=== PATIENT | female | born 1990 | race African-American/Black ===

== ENCOUNTER 2019-03-31 08:00 | Outpatient (CLI) | payer OTHER ==
[2019-03-31 12:17] LABS: BASOPHILS % (AUTO) 0.6 %; EOSINOPHILS # (AUTO) 0.2 10^3/uL (0.0-0.7); EOSINOPHILS % (AUTO) 2.2 %; HGB - HEMOGLOBIN 13.6 g/dL (12.0-16.0); LYMPHOCYTES # (AUTO) 2.6 10^3/uL (1.5-3.5); LYMPHOCYTES % (AUTO) 38.3 %; MEAN CORPUSCULAR HEMOGLOBIN 27.2 pg (27.0-31.0); MEAN CORPUSCULAR HGB CONC 32.1 g/dL (32.0-36.0); MEAN CORPUSCULAR VOLUME 84.8 fL (81.0-99.0); MEAN PLATELET VOLUME 9.6 fL (7.9-10.8); MONOCYTES # (AUTO) 0.6 10^3/uL (0.0-1.0); MONOCYTES % (AUTO) 8.8 %; NEUTROPHILS # (AUTO) 3.4 10^3/uL (1.5-6.6); NEUTROPHILS % (AUTO) 49.8 %; PLT - PLATELET COUNT 331 10^3/uL (130-450); RED CELL DISTRIBUTION WIDTH 13.3 % (12.0-15.0); WHITE BLOOD COUNT 6.8 x10^3/uL (4.8-10.8)
[2019-03-31 12:39] LABS: ALBUMIN 3.9 g/dL (3.2-5.5); ALBUMIN/GLOBULIN RATIO 1.1 (1.0-2.2); ALKALINE PHOSPHATASE 65 IU/L (42-121); ALT ALANINE AMINOTRANSFERASE 32 IU/L (10-60); AST ASPARTATE AMINOTRANSFERASE 24 IU/L (10-42); BILIRUBIN,TOTAL 0.5 mg/dL (0.2-1.0); BUN - BLOOD UREA NITROGEN 10 mg/dL (6-20); CARBON DIOXIDE - CO2 26 mmol/L (21-32); CHLORIDE 101 mmol/L (101-111); CHOL/HDL RATIO 5.6 (<4.4); CHOLESTEROL 211 mg/dL; CREATININE 0.6 mg/dL (0.4-1.0); GFR - MDRD 145 (>89); GLUCOSE 208 mg/dL (70-100); HB2 TOTAL 14.6 g/dL; HDL CHOLESTEROL 38 mg/dL; HEMOGLOBIN A1C 1.3 g/dL; HEMOGLOBIN A1C % 10.3 % (4.6-6.2); LDL CHOLESTEROL,CALCULATED 148 mg/dL; LDL/HDL RATIO 3.9 (<4.4); SODIUM 137 mmol/L (135-145); TOTAL PROTEIN 7.5 g/dL (6.7-8.2); VLDL CHOLESTEROL 25 mg/dL
== END 2019-03-31 23:59 | disposition home or self-care (01) ==
LOC: LAB.N 08:00
PROVIDERS: ATTEND Family Medicine
DX: E11.9 Type 2 diabetes mellitus without complications (principal)
CPT/HCPCS: 36415; 80053; 80061; 83036; 83721; 84443; 85025

== ENCOUNTER 2019-07-07 11:32 | Outpatient (CLI) | payer OTHER ==
[2019-07-07 14:26] LABS: CHOL/HDL RATIO 3.4 (<4.4); CHOLESTEROL 126 mg/dL; HDL CHOLESTEROL 37 mg/dL; LDL CHOLESTEROL,CALCULATED 70 mg/dL; LDL/HDL RATIO 1.9 (<4.4); VLDL CHOLESTEROL 19 mg/dL
[2019-07-07 14:33] LABS: HB2 TOTAL 14.9 g/dL; HEMOGLOBIN A1C 1.22 g/dL; HEMOGLOBIN A1C % 9.6 % (4.6-6.2)
== END 2019-07-07 23:59 | disposition home or self-care (01) ==
LOC: LAB.WCP 11:32
PROVIDERS: ATTEND Family Medicine
DX: E78.5 Hyperlipidemia, unspecified (principal); E11.9 Type 2 diabetes mellitus without complications
CPT/HCPCS: 36415; 80061; 83036; 83721

== ENCOUNTER 2019-08-10 15:40 | Outpatient (CLI) | payer OTHER | END 2019-08-10 23:59 | disposition home or self-care (01) | LOC: LAB.WCP 15:40 | PROVIDERS: ATTEND Family Medicine | DX: Z02.0 Encounter for examination for admission to educational institution (principal); E28.2 Polycystic ovarian syndrome | CPT/HCPCS: 36415; 84702; 86704; 86735; 86762; 86765; 86787 ==

== ENCOUNTER 2019-10-01 14:17 | Outpatient (CLI) | payer MEDICAID ==
--- NOTE | 2019-10-01 15:26 | Ultrasound Report ---
PROCEDURE: Pelvic w/Transvaginal INDICATIONS: POLYCYSTIC OVARIAN SYN TECHNIQUE: Real-time scanning was performed of the pelvic organs, with image documentation. Additional endovagi nal scanning was necessary due to incomplete visualization of the adnexal and endometrial structures by transabdominal scanning. COMPARISON: None. FINDINGS: Transabdominal scanning: Limited scanning through the kidneys shows no hydronephrosis. No pathologi c free abdominal or pelvic fluid. Endovaginal scanning: Uterus: Uterus is normal in size at 6.4 x 2.6 x 3.9 cm. The endometrium measures 3 mm in combined t hickness. Nabothian cysts are incidentally noted in the cervix. Ovaries: The right ovary measures 2.3 x 2.4 x 2.4 cm (volume 7 cc) and contains greater than 12 foll icles. The left ovary measures 2.2 x 2.3 x 2.2 cm (volume 6 cc) and contains greater than 12 follicle s. IMPRESSION: No acute abnormality. Both ovaries are normal in size. Greater than 12 small follicles are seen in ruy th ovaries. Reviewed by: Jose Aquino MD on 10/01/2019 3:25 PM PDT Approved by: Jose Aquino MD on 10/01/2019 3:25 PM PDT Station ID: [id number]
== END 2019-10-01 14:18 | disposition home or self-care (01) ==
LOC: DI 14:17
PROVIDERS: ATTEND Advanced Practice Midwife
DX: E28.2 Polycystic ovarian syndrome (principal)
CPT/HCPCS: 76830; 76856

== ENCOUNTER 2019-10-13 08:09 | Outpatient (CLI) | payer MEDICAID ==
[2019-10-13 12:18] LABS: CREATININE 0.7 mg/dL (0.4-1.0)
[2019-10-13 12:24] LABS: CREATININE,URINE 272.1 mg/dL; MICROALBUM/CREATININE RATIO,UR 14.7 ug/mg (<30.0)
[2019-10-13 12:28] LABS: HEMOGLOBIN A1c% 9.6 % (4.27-6.07)
== END 2019-10-13 08:10 | disposition home or self-care (01) ==
LOC: LAB.WCP 08:09
PROVIDERS: ATTEND Family Medicine
DX: E11.9 Type 2 diabetes mellitus without complications (principal)
CPT/HCPCS: 36415; 80048; 82043; 82570; 83036; 85025

== ENCOUNTER 2020-01-01 14:31 | Outpatient (CLI) | payer MEDICAID ==
[2020-01-01 17:43] LABS: BASOPHILS # (AUTO) 0.1 10^3/uL (0.0-0.1); BASOPHILS % (AUTO) 0.7 %; EOSINOPHILS # (AUTO) 0.1 10^3/uL (0.0-0.7); EOSINOPHILS % (AUTO) 1.4 %; HGB - HEMOGLOBIN 13.3 g/dL (12.0-16.0); LYMPHOCYTES # (AUTO) 2.8 10^3/uL (1.5-3.5); LYMPHOCYTES % (AUTO) 39.9 %; MEAN CORPUSCULAR HEMOGLOBIN 27.8 pg (27.0-31.0); MEAN CORPUSCULAR HGB CONC 32.6 g/dL (32.0-36.0); MEAN CORPUSCULAR VOLUME 85.4 fL (81.0-99.0); MEAN PLATELET VOLUME 9.5 fL (7.9-10.8); MONOCYTES # (AUTO) 0.7 10^3/uL (0.0-1.0); MONOCYTES % (AUTO) 9.2 %; NEUTROPHILS # (AUTO) 3.4 10^3/uL (1.5-6.6); NEUTROPHILS % (AUTO) 48.5 %; PLT - PLATELET COUNT 330 10^3/uL (130-450); RED BLOOD COUNT 4.78 10^6/uL (4.20-5.40); RED CELL DISTRIBUTION WIDTH 13.2 % (12.0-15.0); WHITE BLOOD COUNT 7.1 x10^3/uL (4.8-10.8)
[2020-01-01 18:01] LABS: ALBUMIN 4.1 g/dL (3.2-5.5); ALBUMIN/GLOBULIN RATIO 1.2 (1.0-2.2); BILIRUBIN,TOTAL 0.5 mg/dL (0.2-1.0); CALCIUM 9.3 mg/dL (8.5-10.3); CREATININE 0.6 mg/dL (0.4-1.0); TOTAL PROTEIN 7.6 g/dL (6.7-8.2)
[2020-01-01 20:36] LABS: HEMOGLOBIN A1c% 10.3 % (4.27-6.07)
== END 2020-01-01 23:59 | disposition home or self-care (01) ==
LOC: LAB.WCP 14:31
PROVIDERS: ATTEND Physician Assistant
DX: E11.9 Type 2 diabetes mellitus without complications (principal); Z79.899 Other long term (current) drug therapy
CPT/HCPCS: 36415; 80053; 82607; 83036; 85025

== ENCOUNTER 2020-01-03 12:29 | Outpatient (CLI) | payer MEDICAID | END 2020-01-03 12:30 | disposition home or self-care (01) | LOC: COV 12:29 | PROVIDERS: ATTEND Family Medicine | DX: R05 Cough (principal); R53.83 Other fatigue; R19.7 Diarrhea, unspecified; R09.81 Nasal congestion; Z20.828 Contact with and (suspected) exposure to other viral communicable diseases ==

== ENCOUNTER 2020-01-19 08:44 | Outpatient (CLI) | payer MEDICAID ==
--- NOTE | 2020-01-19 11:01 | Ultrasound Report ---
PROCEDURE: Abdomen Limited INDICATIONS: ELEVATED LFT'S TECHNIQUE: Real-time focused scanning was performed of the abdomen, with image documentation. COMPARISON: None FINDINGS: The liver is enlarged at 22 cm craniocaudad and diffusely prominently echogenic consistent with extensive hepatic steatosis. The gallbladder is surgically absent. The bile ducts are not diste nded at 4.5 mm at the common duct. The pancreas visualized appears normal but the body and tail is la rgely obscured. Right kidney is normal, free of hydronephrosis or nephrolithiasis. IMPRESSION: Prominent fatty infiltration throughout the liver, which is enlarged. Densely echogenic liver preclud es clear visualization of portions of the retroperitoneum through this area. Reviewed by: Sunil Brown MD on 01/19/2020 11:00 AM PST Approved by: Sunil Brown MD on 01/19/2020 11:00 AM PST Station ID: [id number]
== END 2020-01-19 08:45 | disposition home or self-care (01) ==
LOC: DI 08:44
PROVIDERS: ATTEND Physician Assistant
DX: R74.8 Abnormal levels of other serum enzymes (principal); K76.0 Fatty (change of) liver, not elsewhere classified

== ENCOUNTER 2020-02-22 08:59 | Outpatient (CLI) | payer MEDICAID | END 2020-02-22 09:00 | disposition home or self-care (01) | LOC: DI 08:59 | PROVIDERS: ATTEND Physician Assistant | DX: I87.8 Other specified disorders of veins (principal) | CPT/HCPCS: 93306 ==

== ENCOUNTER 2020-03-06 09:41 | Outpatient (CLI) | payer MEDICAID | END 2020-03-06 09:42 | disposition home or self-care (01) | LOC: COV 09:41 | PROVIDERS: ATTEND Family Medicine | DX: R05 Cough (principal); M79.10 Myalgia, unspecified site; R09.81 Nasal congestion; J34.89 Other specified disorders of nose and nasal sinuses; Z20.822 Contact with and (suspected) exposure to COVID-19 ==

== ENCOUNTER 2020-04-02 08:39 | Outpatient (CLI) | payer MEDICAID ==
[2020-04-02 12:06] LABS: ALBUMIN 4.3 g/dL (3.2-5.5); ALBUMIN/GLOBULIN RATIO 1.2 (1.0-2.2); BILIRUBIN,TOTAL 0.4 mg/dL (0.2-1.0); CALCIUM 9.6 mg/dL (8.5-10.3); CREATININE 0.9 mg/dL (0.4-1.0)
[2020-04-02 12:14] LABS: HEMOGLOBIN A1c% 8.7 % (4.27-6.07)
== END 2020-04-02 23:59 | disposition home or self-care (01) ==
LOC: LAB.WCP 08:39
PROVIDERS: ATTEND Nurse Practitioner Family
DX: E11.9 Type 2 diabetes mellitus without complications (principal)
CPT/HCPCS: 36415; 80053; 83036

== ENCOUNTER 2020-04-09 08:00 | Outpatient (CLI) | payer MEDICAID ==
[2020-04-09 18:55] LABS: HCG,QUALITATIVE BLOOD NEGATIVE
== END 2020-04-09 23:59 | disposition home or self-care (01) ==
LOC: LAB.WCP 08:00
PROVIDERS: ATTEND Nurse Practitioner Family
DX: F31.30 Bipolar disorder, current episode depressed, mild or moderate severity, unspecified (principal); R53.83 Other fatigue; N91.2 Amenorrhea, unspecified; R11.0 Nausea
CPT/HCPCS: 36415; 82306; 84703

== ENCOUNTER 2020-04-15 14:32 | Outpatient (CLI) | payer MEDICAID ==
[2020-04-15 15:07] VITALS: BP 123/93
--- NOTE | 2020-04-15 15:07 | SLEEP CARE CONSULTATION ---
Information from patient questionnaire entered by Shirley Earl. I have reviewed and concur with the information entered by Shirley Earl. This document represents the service I personally performed and the decisions made by me, Juliana Castellanos MD, [facility]. History of Present Illness Service Date and Time: 04/15/2020 1432 Reason for Visit: New patient Chief Complaint: reports: Insomnia, Fatigue Date of Onset: several months Usual bedtime: 12-1 am Time it takes to fall asleep: 30-60 minutes Snores at night: Yes (I've been told) Observed to quit breathing while asleep: No Sleeps alone due to snoring: No Number of times waking at night: 1-2 Reasons for waking at night: reports: Pain, Bathroom Toss, Turn, or Twitch while sleeping: Yes Recalls having dreams: Yes Usually gets out of bed at: 8-9 am Feels refreshed in the morning: No Morning headache: Yes Sleepy or fatigued during the day: Yes Ever fallen asleep while driving: Yes Takes day naps: Yes Dreams during day naps: Yes Prior sleep studies: No Additional HPI information: I have the pleasure of seeing Ms. Sandhu today regarding the possibility of her having a sleep disorder. As you know, she is a 29 year old lady who complains of insomnia for the past several months but also worries of having obstructive sleep apnea-hypopnea. The patient tells me that she normally goes to bed around midnight, and it takes her approximately 30 - 60 minutes to fall asleep. She has been told that she snores loudly and irregularly at night. She has never been observed to stop breathing in her sleep. Her bed partner can still sleep in the same bed. She can recall waking up on the average of 1 - 2 times during the night. In the morning she usually gets up out of the bed around 9:30 a.m. not feeling refreshed nor rested. She usually has a morning headache that lasts all day. During the day she complains of feeling sleepy and fatigued. Her score on [place] Sleepiness Scale is 12 out of 24. She has fallen asleep while driving and has gone out of the abby. She usually takes naps during the day. She reports having impaired concentration during the day. 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 Patient is Single and lives in [place]. Have you smoked in the past 12 months: Yes Cigarettes per day (20/pack): 5 Years of smokin (on and off) Quit date: a few weeks ago (03/2020) Smoking Pack Years: 2.0 Alcohol use: No Caffeine use: Yes Caffeine amount and frequency: 1 cup or beverage every few days Family History Family history of sleep disordered breathing: Yes (uncle) Family Hx Sleep Apnea: Other: Sleep apnea - Treated (uncle) Allergies and Home Medications Drug allergies reviewed: Yes Home medication list reviewed: Yes Review of Systems Weight gain over past 5 years: 60 Weight loss over past 5 years: 10 Cardiovascular: reports: high blood pressure Gastrointestinal: reports: nausea, vomitting, diarrhea Neurological: reports: headaches Psychiatric: reports: anxiety, depression, mood disorder Ear/Nose/Throat: reports: tonsillectomy Endocrine: reports: too hot or cold Musculoskeletal: reports: back pain, muscle pain or cramping Immunologic: reports: rash Physical Exam Vital signs obtained and entered by: Dr. Castellanos Blood Pressure: 123/93 Cuff size: regular Heart Rate: 97 O2 Saturation: 95 Height: 5 ft 5 in Weight: 348 lb Body Mass Index: 57.9 BMI Classification: Morbidly Obese Neck circumference: 17 Mood/affect: Normal HEENT: No craniofacial malformation Nostrils: patent to airflow Turbinates: normal Septum: midline Mouth and throat: narrow oropharynx Soft palate: normal Hard palate: normal Uvula: normal Uvula visualization: 50% Mallampati Class II Tongue: normal in size Tonsils: absent bilaterally Chin and jaw: normal size and position Neck: normal w/o lymphadenopathy or thyromegaly Impression and Plan IMPRESSION: 1. Obstructive Sleep Apnea-Hypopnea Syndrome, as evident by history of loud and irregular snoring, unrefreshed sleep, morning headache, cognitive impairment, and daytime hypersomnolence. Narrow oropharynx and obesity are common predisposing factors for obstructive sleep apnea-hypopnea syndrome. Untreated obstructive sleep apnea can also cause hypertension. I recommend proceeding to polysomnography to confirm the diagnosis and to assess severity. If she has significant sleep disordered breathing, a manual CPAP titration study will also be performed to find the optimal treatment pressure. I informed the patient of what the sleep studies involve and after some discussion, she would like to first have a home sleep apnea test (HSAT). Plan: 1. Schedule a home sleep apnea test (HSAT) 2. Avoid long distance driving or when feeling sleepy. 3. Avoid alcohol, sedative and muscle relaxant around bedtime. 4. Attempt to lose weight. 5. Return for a follow up after the test. Follow up recommended for: Weight management Visit Type: In Office Time Spent with Patient (minutes): 15 Provider Statement: I spent 100% of the Face to Face Visit with the patient with greater than 50% spent counseling the patient and coordination of care.
== END 2020-04-15 14:33 | disposition home or self-care (01) ==
LOC: SC 14:32
PROVIDERS: ATTEND Internal Medicine Pulmonary Disease
DX: G47.10 Hypersomnia, unspecified (principal); R06.83 Snoring; F17.210 Nicotine dependence, cigarettes, uncomplicated; E66.01 Morbid (severe) obesity due to excess calories; Z68.43 Body mass index [BMI] 50.0-59.9, adult; G47.8 Other sleep disorders; R51.9 Headache, unspecified; R41.89 Other symptoms and signs involving cognitive functions and awareness
CPT/HCPCS: 99202; 99212

== ENCOUNTER 2020-05-06 13:48 | Outpatient (CLI) | payer MEDICAID | END 2020-05-06 13:49 | disposition home or self-care (01) | LOC: SC 13:48 | PROVIDERS: ATTEND Internal Medicine Pulmonary Disease | DX: G47.10 Hypersomnia, unspecified (principal); R06.83 Snoring; R51.9 Headache, unspecified; R41.89 Other symptoms and signs involving cognitive functions and awareness; F17.210 Nicotine dependence, cigarettes, uncomplicated; E66.01 Morbid (severe) obesity due to excess calories; Z68.43 Body mass index [BMI] 50.0-59.9, adult | CPT/HCPCS: 95806 ==

== ENCOUNTER 2020-05-20 14:36 | Outpatient (CLI) | payer MEDICAID ==
--- NOTE | 2020-05-20 14:55 | SLEEP CARE CONSULTATION ---
Information from patient questionnaire entered by Tl Connell. I have reviewed and concur with the information entered by Tl Connell. This document represents the service I personally performed and the decisions made by me, Juliana Castellanos MD, [facility]. History of Present Illness Service Date and Time: 05/20/2020 1436 Initial [place] Sleepiness Scale score: 12 (in 2020) Current [place] Sleepiness Scale score: 10 Additional HPI information: HPI: Ms. Tobias returned for follow up of the sleep study she had on 05/06/2020. The polysomnography showed no significant sleep disordered breathing. The AHI was 4.2. However, supine AHI was 5.3 while non-supine was 1.7. Oxygen saturation was minimally low. The patient was informed of these findings. I explained to her that she does not have significant sleep disordered breathing. Her main complaint is sleep onset insomnia. Sleep Study - Results Type of Sleep Study: Home sleep study Prior sleep studies: No Allergies and Home Medications Drug allergies reviewed: Yes Home medication list reviewed: Yes Review of Systems Review of systems same as previous: Yes Physical Exam Height: 5 ft 5 in Weight: 348 lb Body Mass Index: 57.9 BMI Classification: Morbidly Obese Impression and Plan IMPRESSION: 1. Insomnia, due mainly to her going to sleep too early for her wake up time. Presently she goes to bed at midnight. However, because she wakes up at 9:30 am, her bedtime is actually not until 1:30 am, assuming the normal sleep requirement of 8 hours a night. PLAN: 1. Maintain a regular wake up time and spend no more than 8 hours in bed at night. Avoid naps. 2. Avoid weight gain. 3. Avoid sleeping supine. 4. Return for a follow up on as needed basis. Follow up recommended for: Weight management Visit Type: In Office Time Spent with Patient (minutes): 15 Provider Statement: I spent 100% of the Face to Face Visit with the patient with greater than 50% spent counseling the patient and coordination of care.
== END 2020-05-20 14:37 | disposition home or self-care (01) ==
LOC: SC 14:36
PROVIDERS: ATTEND Internal Medicine Pulmonary Disease
DX: G47.00 Insomnia, unspecified (principal); E66.01 Morbid (severe) obesity due to excess calories; Z68.43 Body mass index [BMI] 50.0-59.9, adult
CPT/HCPCS: 99212

== ENCOUNTER 2020-05-27 15:36 | Outpatient (CLI) | payer MEDICAID ==
[2020-05-27 22:57] LABS: BACTERIAL VAGINOSIS DNA NEGATIVE (NEGATIVE); CANDIDA GLABRATA DNA NEGATIVE (NEGATIVE); CANDIDA GROUP DNA NEGATIVE (NEGATIVE); CANDIDA KRUSEI DNA NEGATIVE (NEGATIVE); TRICHOMONAS VAGINALIS DNA NEGATIVE (NEGATIVE)
[2020-05-28 00:20] LABS: CHLAMYDIA TRACHOMATIS DNA NEGATIVE (NEGATIVE); NEISSERIA GONORRHOEAE DNA NEGATIVE (NEGATIVE); TRICHOMONAS VAGINALIS DNA NEGATIVE (NEGATIVE)
== END 2020-05-27 23:59 | disposition home or self-care (01) ==
LOC: LAB.R 15:36
PROVIDERS: ATTEND Physician Assistant Medical
DX: N76.0 Acute vaginitis (principal)
CPT/HCPCS: 87086; 87491; 87591; 87661; 87801

== ENCOUNTER 2020-07-02 08:00 | Outpatient (CLI) | payer MEDICAID ==
[2020-07-02 12:32] LABS: CALCIUM 9.5 mg/dL (8.5-10.3); CREATININE 1.1 mg/dL (0.4-1.0); POTASSIUM 4.1 mmol/L (3.5-5.0)
[2020-07-02 12:46] LABS: ESTIMATED AVERAGE GLUCOSE 160 mg/dL (70-100); HEMOGLOBIN A1c% 7.2 % (4.27-6.07)
== END 2020-07-02 23:59 | disposition home or self-care (01) ==
LOC: LAB.WCP 08:00
PROVIDERS: ATTEND Nurse Practitioner Family
DX: E11.9 Type 2 diabetes mellitus without complications (principal)
CPT/HCPCS: 36415; 80048; 83036

== ENCOUNTER 2020-10-03 08:54 | Outpatient (CLI) | payer MEDICAID ==
[2020-10-03 12:40] LABS: BUN - BLOOD UREA NITROGEN 18 mg/dL (6-20); CALCIUM 9.3 mg/dL (8.5-10.3); CARBON DIOXIDE - CO2 26 mmol/L (21-32); CHLORIDE 102 mmol/L (101-111); CHOL/HDL RATIO 4.1 (<4.4); CHOLESTEROL 152 mg/dL; CREATININE 0.9 mg/dL (0.4-1.0); GFR - MDRD 90 (>89); GLUCOSE 118 mg/dL (70-100); HDL CHOLESTEROL 37 mg/dL; LDL CHOLESTEROL,CALCULATED 92 mg/dL; LDL/HDL RATIO 2.5 (<4.4); POTASSIUM 3.7 mmol/L (3.5-5.0); SODIUM 140 mmol/L (135-145); TRIGLYCERIDES 115 mg/dL; VLDL CHOLESTEROL 23 mg/dL
[2020-10-03 13:15] LABS: ESTIMATED AVERAGE GLUCOSE 183 mg/dL (70-100)
== END 2020-10-03 23:59 | disposition home or self-care (01) ==
LOC: LAB.WCP 08:54
PROVIDERS: ATTEND Internal Medicine
DX: E11.9 Type 2 diabetes mellitus without complications (principal); E78.5 Hyperlipidemia, unspecified
CPT/HCPCS: 36415; 80048; 80061; 83036; 83721

== ENCOUNTER 2020-12-29 08:54 | Outpatient (CLI) | payer MEDICAID ==
[2020-12-29 09:37] LABS: ALBUMIN 4.3 g/dL (3.2-5.5); ALBUMIN/GLOBULIN RATIO 1.2 (1.0-2.2); BILIRUBIN,TOTAL 0.4 mg/dL (0.2-1.0); CALCIUM 9.6 mg/dL (8.5-10.3); CREATININE 0.9 mg/dL (0.4-1.0); POTASSIUM 3.9 mmol/L (3.5-5.0); TOTAL PROTEIN 7.8 g/dL (6.7-8.2)
[2020-12-29 12:49] LABS: ESTIMATED AVERAGE GLUCOSE 163 mg/dL (70-100); HEMOGLOBIN A1c% 7.3 % (4.27-6.07)
== END 2020-12-29 08:55 | disposition home or self-care (01) ==
LOC: LAB 08:54
PROVIDERS: ATTEND Family Medicine
DX: E11.9 Type 2 diabetes mellitus without complications (principal)
CPT/HCPCS: 36415; 80053; 83036